=== PATIENT | female | born 1975 | race Asian ===

== ENCOUNTER 2017-05-25 08:47 | Emergency (ER) | payer BC ==
[~2017-05-25] VITALS: Ht 160 cm; Wt 95.3 kg
[~2017-05-25 08:47] MED LIST: ALBUTERO2 IN
[2017-05-25 09:06] VITALS: TEMP 98.6
[2017-05-25 09:53] VITALS: BP 108/78
== END 2017-05-25 09:54 | disposition home or self-care (01) ==
LOC: ED 08:47
DX: M25.511 Pain in right shoulder (principal); S40.011A Contusion of right shoulder, initial encounter; W19.XXXA Unspecified fall, initial encounter; Y93.89 Activity, other specified; Y92.89 Other specified places as the place of occurrence of the external cause; Y99.8 Other external cause status
CPT/HCPCS: 99282

== ENCOUNTER 2017-12-21 01:36 | Emergency (ER) | payer OTHER ==
[~2017-12-21] VITALS: Ht 157.5 cm; Wt 104.3 kg
[2017-12-21 01:45] VITALS: BP 112/79; TEMP 98.1
[2017-12-21 02:19] LABS: PLATELET COUNT 266 K/uL (152-353)
== END 2017-12-21 02:43 | disposition home or self-care (01) ==
LOC: ED 01:36
DX: J02.9 Acute pharyngitis, unspecified (principal)
CPT/HCPCS: 36415; 85027; 87081; 87804; 87880; 99283

== ENCOUNTER 2018-03-20 13:34 | Outpatient (CLI) | payer OTHER | END 2018-03-20 21:32 | disposition home or self-care (01) | LOC: CT 13:34 | DX: N20.0 Calculus of kidney (principal) | CPT/HCPCS: Q9963 ==

== ENCOUNTER 2018-09-25 19:43 | Emergency (ER) | payer OTHER ==
[~2018-09-25] VITALS: Ht 157.5 cm; Wt 104.8 kg
[2018-09-25 20:17] LABS: PLATELET COUNT 263 K/uL (152-353)
[2018-09-25 20:29] LABS: POTASSIUM 3.7 mmol/L (3.6-5.2); SODIUM 139 mmol/L (136-145)
[2018-09-25 23:42] VITALS: BP 120/69; TEMP 98.5
== END 2018-09-25 23:45 | disposition home or self-care (01) ==
LOC: ED 19:43
PROVIDERS: Emergency Medicine
DX: R07.89 Other chest pain (principal); R00.0 Tachycardia, unspecified
CPT/HCPCS: 36415; 80053; 82550; 82553; 84484; 85027; 85379; 96374; 99284; J2270

== ENCOUNTER 2019-09-02 14:46 | Emergency (ER) | payer OTHER ==
[~2019-09-02] VITALS: Ht 157.5 cm; Wt 104.8 kg
[2019-09-02 16:44] VITALS: BP 108/77; TEMP 97.8
== END 2019-09-02 16:47 | disposition home or self-care (01) ==
LOC: ED 14:46
DX: S50.862A Insect bite (nonvenomous) of left forearm, initial encounter (principal); S50.861A Insect bite (nonvenomous) of right forearm, initial encounter; L03.114 Cellulitis of left upper limb; L03.113 Cellulitis of right upper limb; W57.XXXA Bitten or stung by nonvenomous insect and other nonvenomous arthropods, initial encounter; Y92.89 Other specified places as the place of occurrence of the external cause
CPT/HCPCS: 96372; 99282; 99283; J2930

== ENCOUNTER 2019-12-22 11:52 | Emergency (ER) | payer OTHER ==
[~2019-12-22] VITALS: Ht 157.5 cm; Wt 97.5 kg
[2019-12-22 12:02] VITALS: BP 124/78; TEMP 99.7
[2019-12-22 12:38] LABS: PLATELET COUNT 201 K/uL (152-353)
[2019-12-22 12:47] LABS: POTASSIUM 3.9 mmol/L (3.6-5.2)
== END 2019-12-22 14:31 | disposition home or self-care (01) ==
LOC: ED 11:52
PROVIDERS: Hospitalist
DX: J06.9 Acute upper respiratory infection, unspecified (principal)
CPT/HCPCS: 80048; 85027; 87502; 87651; 99283

== ENCOUNTER 2020-06-03 10:04 | Emergency (ER) | payer OTHER ==
[~2020-06-03] VITALS: Ht 157.5 cm; Wt 103.4 kg
[2020-06-03 11:20] LABS: PLATELET COUNT 186 K/uL (152-353)
[2020-06-03 11:24] LABS: POTASSIUM 3.9 mmol/L (3.6-5.2)
[2020-06-03 12:34] VITALS: BP 120/61; TEMP 98.9
== END 2020-06-03 12:36 | disposition home or self-care (01) ==
LOC: ED 10:04
PROVIDERS: Hospitalist
DX: U07.1 COVID-19 (principal); J06.9 Acute upper respiratory infection, unspecified; R50.9 Fever, unspecified
CPT/HCPCS: 80048; 85027; 87502; 87635; 87651; 99283; U0003

== ENCOUNTER 2021-04-15 20:15 | Emergency (ER) | payer OTHER ==
[~2021-04-15] VITALS: Ht 157.5 cm; Wt 101.2 kg
[2021-04-16 01:47] VITALS: BP 110/88; TEMP 98.5
== END 2021-04-16 01:47 | disposition home or self-care (01) ==
LOC: ED 20:15
DX: S30.1XXA Contusion of abdominal wall, initial encounter (principal); M62.838 Other muscle spasm; V86.55XA Driver of 3- or 4- wheeled all-terrain vehicle (ATV) injured in nontraffic accident, initial encounter; Y92.89 Other specified places as the place of occurrence of the external cause
CPT/HCPCS: 96372; 99283; J1885

== ENCOUNTER 2022-03-15 02:12 | Emergency (ER) | payer OTHER ==
[~2022-03-15] VITALS: Ht 157.5 cm; Wt 102.1 kg
[2022-03-15 02:19] VITALS: TEMP 97.5
[2022-03-15 03:31] LABS: PLATELET COUNT 227 K/uL (152-353)
[2022-03-15 03:32] LABS: POTASSIUM 4.4 mmol/L (3.6-5.2)
[2022-03-15 08:02] VITALS: BP 109/79
== END 2022-03-15 08:35 | disposition short-term general hospital (02) ==
LOC: ED 02:12
PROVIDERS: Emergency Medicine
DX: K57.92 Diverticulitis of intestine, part unspecified, without perforation or abscess without bleeding (principal); Z11.52 Encounter for screening for COVID-19
CPT/HCPCS: 36415; 80048; 81000; 85027; 87635; 96365; 96375; 96376; 99284; J0696; J1170; J2175; J2405; U0003

== ENCOUNTER 2022-05-11 19:32 | Emergency (ER) | payer OTHER ==
[~2022-05-11] VITALS: Ht 157.5 cm; Wt 101.2 kg
[2022-05-11] MEDS ORDERED: MECLIZINE25 MG PO (20:50)
[2022-05-11 21:09] VITALS: BP 131/92; TEMP 98.6
== END 2022-05-11 21:09 | disposition home or self-care (01) ==
LOC: ED 19:32
DX: R42 Dizziness and giddiness (principal)
CPT/HCPCS: 99283

== ENCOUNTER 2022-06-07 10:50 | Emergency (ER) | payer OTHER ==
[~2022-06-07] VITALS: Ht 157.5 cm; Wt 103.4 kg
[~2022-06-07 10:50] MED LIST changes: +MECLIZINE25 MG PO
[2022-06-07 10:55] VITALS: BP 155/80; TEMP 99.2
== END 2022-06-07 13:02 | disposition home or self-care (01) ==
LOC: ED 10:50
DX: J20.9 Acute bronchitis, unspecified (principal); B34.9 Viral infection, unspecified; U07.1 COVID-19
CPT/HCPCS: 87502; 87635; 87651; 99283; U0003

== ENCOUNTER 2022-08-29 15:49 | Emergency (ER) | payer OTHER ==
[~2022-08-29] VITALS: Ht 157.5 cm; Wt 103.4 kg
[2022-08-29 15:50] VITALS: TEMP 98
[2022-08-29 16:45] LABS: PLATELET COUNT 339 K/uL (152-353)
[2022-08-29 16:53] LABS: POTASSIUM 3.9 mmol/L (3.6-5.2); SODIUM 136 mmol/L (136-145)
[2022-08-29 17:00] LABS: PARTIAL THROMBOPLASTIN TIME 26.5 SECONDS (24.5-33.6)
[2022-08-29] MEDS ORDERED: META800T35 PO (17:11)
[2022-08-29 17:29] VITALS: BP 117/78
== END 2022-08-29 18:10 | disposition home or self-care (01) ==
LOC: ED 15:49
PROVIDERS: Emergency Medicine
DX: R07.89 Other chest pain (principal)
CPT/HCPCS: 80053; 84484; 85027; 85610; 85730; 93005; 96372; 99283; J2360

== ENCOUNTER 2023-02-15 17:39 | Inpatient (IN) | payer OTHER ==
[~2023-02-15] VITALS: Ht 157.5 cm; Wt 84.4 kg
[~2023-02-15 17:39] MED LIST changes: +META800T35 PO
[2023-02-15 17:52] VITALS: BP 134/66; TEMP 98.6
[2023-02-15 18:30] LABS: PLATELET COUNT 261 K/uL (152-353)
[2023-02-15 21:52] VITALS: BP 94/65; TEMP 98.4; Ht 157.5 cm; Wt 84.4 kg
[2023-02-16] VITALS (7 sets, daily range): BP systolic 84–108; BP diastolic 53–67; TEMP 97–98.3
[2023-02-16 04:45] LABS: PLATELET COUNT 239 K/uL (152-353)
[2023-02-16 05:27] LABS: POTASSIUM 3.8 mmol/L (3.6-5.2)
[2023-02-16] MEDS ORDERED: IBU800 MG PO (08:22)
[2023-02-16] MEDS ORDERED: TIRZEPATIDE INJ (08:22)
[2023-02-16] MEDS ORDERED: DOCU100C10 PO (08:23)
[2023-02-16] MEDS ORDERED: FLONASE AL50 MCG/ACT NAS (08:24)
[2023-02-17] VITALS: BP 83/54; TEMP 98.2
[2023-02-17 04:00] VITALS: BP 95/58; TEMP 98.3
[2023-02-17 07:42] LABS: PLATELET COUNT 205 K/uL (152-353)
[2023-02-17 07:47] LABS: POTASSIUM 3.5 mmol/L (3.6-5.2)
[2023-02-17 08:00] VITALS: BP 91/57; TEMP 97.9
[2023-02-17 11:55] VITALS: BP 98/61; TEMP 98.1
[2023-02-17] MEDS ORDERED: CIPR500T PO (13:44)
[2023-02-17] MEDS ORDERED: METR250T19 PO (13:45)
[2023-02-17] MEDS ORDERED: TRAM50TA PO (13:47)
== END 2023-02-17 15:35 | disposition home or self-care (01) | DRG 392 ==
LOC: ED 17:39 → MED/SURG 20:30
PROVIDERS: Emergency Medicine; ADMIT Internal Medicine; ATTEND Internal Medicine
DX: K57.32 Diverticulitis of large intestine without perforation or abscess without bleeding (principal); I95.89 Other hypotension; E11.9 Type 2 diabetes mellitus without complications
CPT/HCPCS: 36415; 80048; 80053; 81002; 82150; 83690; 85027; 96361; 96365; 96375; 96376; 99284; J0696; J0744; J1885; J2175; J2405; J3490; Q9963

== ENCOUNTER 2023-04-12 14:55 | Emergency (ER) | payer OTHER ==
[~2023-04-12] VITALS: Ht 157.5 cm; Wt 81.6 kg
[~2023-04-12 14:55] MED LIST changes: +CIPR500T PO; +DOCU100C10 PO; +FLONASE AL50 MCG/ACT NAS; +IBU800 MG PO; +METR250T19 PO; +TIRZEPATIDE INJ; +TRAM50TA PO
[2023-04-12 15:00] VITALS: BP 108/66; TEMP 98.2
[2023-04-12 15:40] LABS: PLATELET COUNT 227 K/uL (152-353)
[2023-04-12 15:57] LABS: POTASSIUM 3.5 mmol/L (3.6-5.2); SODIUM 140 mmol/L (136-145)
== END 2023-04-12 16:37 | disposition home or self-care (01) ==
LOC: ED 14:55
PROVIDERS: Family Medicine
DX: S39.012A Strain of muscle, fascia and tendon of lower back, initial encounter (principal)
CPT/HCPCS: 80053; 84484; 85027; 85379; 93005; 96372; 99283; J1100